=== PATIENT | male | born 1950 | race Caucasian/White ===

== ENCOUNTER 2023-01-06 07:48 | Outpatient (CLI) | payer MEDICARE, BC, SELFPAY ==
--- NOTE | 2023-01-06 08:15 | CRLHL7_ITS ---
For Patients: As a result of the Century Cures Act, medical imaging exams and procedure reports are released immediately into your electronic medical record. You may view this report before your referring provider. If you have questions, please contact your health care provider. INDICATION: Back pain with right-sided radiculopathy. TECHNIQUE: Multiplanar multisequence noncontrast MR images acquired through the lumbar spine. COMPARISON: None. FINDINGS: Mild rightward lumbar curvature. Lumbar lordosis is preserved. Vertebral heights maintained. No acute fracture or spondylolisthesis. No T1 hypointense marrow replacing lesions. Normal conus terminates at L1-2. Mild edema in the right L5 pedicle. T12-L1 and L1-2: No spinal canal or neural foraminal narrowing. L2-3: Mild facet arthropathy. No spinal canal or neural foraminal narrowing. L3-4: Moderate disc degeneration and mild disc height loss. Caudally migrated central disc extrusion measuring 5 mm in short axis. Mild facet arthropathy. Mild spinal canal and lateral recess narrowing. Mild bilateral neural foraminal narrowing. L4-5: Moderate disc degeneration. Mild disc height loss. Superiorly migrated left central disc extrusion extending 8 mm posterior to the endplate margin. Moderately advanced facet arthropathy. Thickening ligamentum flavum. Moderately severe spinal canal stenosis. Severe stenosis of the lateral recesses. Mild left and moderate right neural foraminal narrowing. L5-S1: Advanced disc degeneration and disc height loss. Minimal endplate edema. Posterior bulging and endplate spondylitic ridging. [id number] facet arthropathy. No spinal canal narrowing. Mild bilateral neural foraminal narrowing. Sacroiliac joint degenerative changes. T2 hyperintense lesion in the right kidney superior pole, most typical for a renal cyst. IMPRESSION: 1. At L4-5, superiorly migrated left central disc extrusion moderately severely narrows the spinal canal and severely narrows the lateral recesses. Moderate right and mild left neural foraminal narrowing. 2. At L3-4, caudally migrated central disc extrusion mildly narrows the spinal canal and lateral recesses. Mild neural foraminal narrowing. 3. Mild edema in the right L5 pedicle likely represents a stress response. Dictated by Abel Alvarez MD @ 01/06/2023 9:55:04 AM (Electronically Signed)
== END 2023-01-06 07:49 | disposition home or self-care (01) ==
LOC: MRI 07:48
PROVIDERS: PCP Family Medicine; Visit Provider Family Medicine
DX: M54.10 Radiculopathy, site unspecified (principal); M51.36 Other intervertebral disc degeneration, lumbar region
CPT/HCPCS: 72148

== ENCOUNTER 2024-02-18 09:27 | Outpatient (CLI) | payer MEDICARE, BC, SELFPAY ==
--- OUTSIDE RECORDS SUMMARY | 2024-02-18 09:29 | XMS_ITS | Encounter Summary ---
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 This section includes the names of all active insurance providers for the patient. Insurance Provider Type of Coverage Plan Name Start of Policy Coverage End of Policy Coverage Group Number Member ID Insurance Provider's Telephone Number Policy Jara's Name Patient's Relationship to Policy Jara [facility] (WNR) MEDICARE ADVANTAGE [facility] (WNR) Jul 21, 2018 [id number] [phone] JOSEJULIO CÉSAR PATIENT MEDICARE (WNR) MEDICARE (M) PART A Mar 21, 2017 PART A [id number] [facility] [phone] CHARLYJULIO CÉSAR VANDA PATIENT Selected Encounter This section includes the information on record at [place] for the Encounter. Date/Time Encounter Type Encounter Description Reason Provider Source Oct 02, 2023 08:00 AM OFFICE O/P EST MOD 30 MIN PRIMARY CARE/MEDICINE ICD-10-CM I10 Essential (primary) hypertension WILI VASQUEZ Jordy Encounter Template Text not used by [facility] Assessments - Encounter Diagnoses This section includes the primary and secondary diagnoses documented for the Encounter. Date/Time Primary/Secondary Diagnosis Diagnosis Name Provider Source Oct 03, 2023 05:58 AM PRIMARY Essential (primary) hypertension WILI VASQUEZ CB Oct 03, 2023 05:58 AM SECONDARY Allergic rhinitis, unspecified [facility]RISTINA,[facility]I [facility] Oct 03, 2023 05:58 AM SECONDARY Chronic ischemic heart disease, unspecified [facility]RISTINA,[facility]I [facility] Oct 03, 2023 05:58 AM SECONDARY Encounter for screening, unspecified [facility]RISTINA,[facility]I [facility] Oct 03, 2023 05:58 AM SECONDARY Personal history of colonic polyps CHRISTINA,[facility]I [facility] Oct 03, 2023 05:58 AM SECONDARY Pure hypercholesterolemia , unspecified [facility]RISTINA,[facility]I [facility] Oct 03, 2023 05:58 AM SECONDARY Type 2 diabetes mellitus without complications CHRISTINA,WILI ALEMAN [facility] Vital Signs: All taken on the encounter date This section contains inpatient and outpatient Vital Signs collected on the date of the Encounter. Date/Time Temperature Pulse Blood Pressure Respiratory Rate SP02 Pain Height Weight Body Mass Index Source Oct 02, 2023 08:16 AM 155/74 [facility] Oct 02, 2023 08:03 AM 97.1 57 166/82 16 96 0 74 225.2 29 [facility] Social History: Smoking Status (Most current) and Tobacco Use (All prior to encounter date) This section includes the most current, and the historical, smoking and tobacco- related health factors from the [place] facility where the Encounter took place. Current Smoking Status This section includes the most current smoking, or tobacco-related health factor, from the [place] facility where the Encounter took place. Date/Time Current Smoking Status Comment Facil ity Oct 02, 2022 08:30 AM VA-TOBACCO FORMER USER [facility] Tobacco Use History This section includes a history of the smoking, or tobacco-related health factors, that were collected on or before the date of the Encounter. The data comes from the [place] facility where the Encounter took place. Date/Time Smoking Status/Tobacco Use Comment F acility Oct 02, 2022 08:30 AM VA-TOBACCO QUIT 15 YRS OR MORE [facility] Aug 30, 2021 08:00 AM VA-TOBACCO FORMER USER [facility] Aug 30, 2021 08:00 AM VA-TOBACCO QUIT 15 YRS OR MORE [facility] Jun 13, 2020 09:00 AM VA-TOBACCO FORMER USER [facility] Jun 13, 2020 09:00 AM VA-TOBACCO QUIT 15 YRS OR MORE [facility] Jun 03, 2019 04:26 PM VA-TOBACCO FORMER USER [facility] Jun 03, 2019 04:26 PM VA-TOBACCO QUIT 15 YRS OR MORE [facility] May 19, 2018 09:56 AM VA-TOBACCO FORMER USER [facility] May 19, 2018 09:56 AM VA-TOBACCO QUIT 15 YRS OR MORE [facility] Advance Directives: All historical and current Section Date Range: From patient's date of to the date document was created. This section includes ALL of a patient's completed or amended [place] Advance and Rescinded Directives. The entries below indicate that a directive exists for the patient, but an actual copy is not included with this document. The data comes from all [place] facilities. Date Advance Directives Provider Source Jun 17, 2023 ADVANCE DIRECTIVE [place] SAINI [facility] Jun 17, 2023 ADVANCE DIRECTIVE DISCUSSION FREIDA SAINI [facility] Encounter Notes: All associated encounter notes This section contains the clinical notes associated to the Encounter. Date/Time Encounter Note(s) Provider Source Oct 02, 2023 08:11 AM PRIMARY CARE AYESHA GARCIA NOTE: LOCAL TITLE: [facility] NURSING PROGRESS NOTE STANDARD TITLE: PRIMARY CARE NURSING NOTE DATE OF NOTE: OCT 02, 2023@08:11 ENTRY DATE: OCT 02, 2023@08:11:38 AUTHOR: DELIA BRINK COSIGNER: URGENCY: STATUS: COMPLETED TYPE OF VISIT: Appointment Check In Type of appointment: In-person appointment REASON FOR VISIT: Annual ALLERGIES: Patient has answered NKA VITAL SIGNS: Blood Pressure: 166/82 (10/02/2023 08:03) Pulse: 57 (10/02/2023 08:03) Respiration: 16 (10/02/2023 08:03) Temperature: 97.1 F [36.2 C] (10/02/2023 08:03) Weight: 225.2 lb [102.15 kg] (10/02/2023 08:03) Height: 74 in [188.0 cm] (10/02/2023 08:03) BMI: 29.0 O2 Sat: 96% (10/02/2023 08:03) Pain: 0 (10/02/2023 08:03) PAIN SCREEN: Patient is not having significant pain that they wish to discuss with their provider today. MEDICATION Active Outpatient Medications (including Supplies): MONTELUKAST NA 10MG TAB TAKE ONE TABLET BY MOUTH EVERY DAY ACTIVE FOR NASAL CONGESTION Non-VA ACETAMINOPHEN 500MG TAB 1000MG MOUTH EVERY 6 HOURS ACTIVE NEEDED Non-VA ASPIRIN 81MG EC TAB 81MG MOUTH EVERY MORNING ACTIVE Non-VA CLOPIDOGREL BISULFATE 75MG TAB 75MG MOUTH ACTIVE Non-VA HYDROCHLOROTHIAZIDE TAB 12.5MG MOUTH EVERY DAY ACTIVE Non-VA METFORMIN HCL 750MG 24HR SA TAB 750MG MOUTH EVERY ACTIVE DAY Non-VA METOPROLOL SUCCINATE 50MG SA TAB 50MG MOUTH TWICE A ACTIVE DAY Non-VA ROSUVASTATIN CA 5MG TAB 40MG MOUTH EVERY DAY ACTIVE Non-VA VALSARTAN 160MG TAB 80MG MOUTH EVERY DAY ACTIVE PAVE Foot Check: A complete foot check was completed at this encounter. VISUAL INSPECTION: Includes inspection for skin breaks, deformity, erythema, trauma, pallor on elevation, dependent rubor, nail deformities, extensive callus and pitting edema. Visual exam results: Abnormal Observations: Hammertoes, Other:Reddness on medial 1st toe joint bilaterally. PEDAL PULSES: Includes palpation of dorsalis and posterior tibial pulses and signs/symptoms of vascular compromise like pain, pallor, parasthesia or paralysis. Present (even if diminished) SENSORY CHECK: Includes 10 gram Monofilament ([place]) test of sensation. Intact (Greater than or equal to 80% of sites checked) Abnormal (Less than 80% of sites checked): Intact LOW-RISK LOW RISK FOOT EDUCATION: 1. Advised patient not to walk barefoot. Instructed the patient to pay close attention to the style and fit of shoes. 2. Explained the importance of daily foot checks. Explained that loss of sensation leads to callouses. Callouses break down, which result in ulcers that may lead to gangrene and amputation. 3. Stressed the importance of daily foot hygiene. Warm (not hot) bathing of the feet, complete drying and thorough inspection for changes in the condition of the skin constitute daily foot care. Demonstrated how to do a thorough foot check. 4. Emphasized the use of clean, non-restrictive socks/stockings and well fitting shoes. 5. Stressed the importance of immediate follow-up of any foot injuries or ulcers. Explained that he/she should be non-weight bearing whenever there are lesions on the foot, to prevent cellular damage. Level of Understanding: Good COVID-19 Immunization: Refused Pfizer Monovalent COVID-19 vaccine Immunization: COVID-19 (PFIZER), MRNA, LNP-S, PF, ROSA-SUCROSE, 30 MCG/0.3 ML (AGES 12+ YEARS) Refusal Reason: PATIENT DECISION Patient refuses all immunization(s) in the COVID-19 group Date Documented: 10/02/23 08:14 Influenza Immunization: The patient has received the seasonal influenza vaccine for the current season at another location. Documented: INFLUENZA, UNSPECIFIED FORMULATION Historical Date Administered: Apr 20, 2023 Outside Location: [facility] Information Source: FROM OTHER PROVIDER /gustavo/ [facility] Signed: 10/02/2023 08:15 [facility] Oct 02, 2023 08:07 AM PRIMARY CARE NOTE: LOCAL TITLE: [facility] PROGRESS NOTE - [facility] STANDARD TITLE: PRIMARY CARE NOTE DATE OF NOTE: OCT 02, 2023@08:07 ENTRY DATE: OCT 02, 2023@08:07:48 AUTHOR: WILI VASQUEZ EXP COSIGNER: URGENCY: STATUS: COMPLETED Assessment and Plan: #. Hypertension. Blood pressure is slightly elevated today. He states it is always normal at home, under 140/90, but when he goes into a clinic it is elevated. He is managed by his non-VA PCP. #. Coronary artery disease. Stable. No anginal symptoms. History of CABG and stents. The patient states he no longer takes clopidogrel due to drug interaction with rosuvastatin, which is working well on his cholesterol. He takes aspirin 162 mg daily. He is also managed on metoprolol succinate 50 mg twice daily. #. Hyperlipidemia. Managed by non-VA provider on rosuvastatin 40 mg daily. #. Type 2 diabetes mellitus. No complications. He gets his [facility] exams [facility] from the [facility]. Encouraged him to have records [facility] to the [facility]. PAVE exam done today (low risk), see nursing note. He is on a statin and an ARB. #. History of colon polyps. Declines GI consult for colonoscopy as his non-VA provider orders his colonoscopy for him. He will discuss with Dr. Díaz. #. Allergic rhinitis. Symptoms helped with montelukast 10 mg daily which was renewed for him today. #. Annual healthcare maintenance. Screenings/reminders done per nurse note and per below. Return to clinic: 1 year for annual healthcare maintenance visit, and sooner as clinically needed Time documentation: 30 minutes total patient care time on the day of service, which included nursing and physician [id number] time with the patient (history/exam/discussion and counseling about concerns/reminders, medication reconciliation), reviewing records, ordering studies, coordinating care and documenting in the medical record. (x ) Patient/Caregiver indicates readiness to learn, verbalizes understanding, agreement and satisfaction with the treatment plan. Patient/Caregiver doesn't have any further questions today. Nurse's notes reviewed from today. AIRAM PARKS is a 73 year old MALE here for annual healthcare maintenance visit and to follow-up on chronic conditions as noted above Co-managed care: John Shepherd, Dr. Bryant Díaz. Dr. Garay is his [facility] project facilitator HPI: Patient states his diabetes control is okay. He generally runs in the 150- 160 range. He had one lower number of 85, which he felt symptomatic with. He has had a rare reading in the 300s. He is uncertain what his last A1c was but thinks it was in the 7's. He watches his carbohydrate intake and does not eat any candy. Regarding blood pressures, they are always normal at home, but high when he goes into the clinic. He denies any lightheadedness, chest pain, shortness of breath or leg swelling. Hearing loss is stable. His hearing aids work well for him. He goes to the gym every day and does both cardio and weights. No specific health concerns today. ROS: 10 system review otherwise negative Family History: grandpa had diabetes; dad had heart problems-- age 65, mom had a stroke (still alive) Social History: quit smoking 35 years ago--25-30 pk-yrs; occas. alcohol-- 1-2 drinks--varies (every other day to every other week); Active problems - Computerized Problem List is the source for the followin. Chronic low back pain 2. Essential hypertension 3. Vitamin D deficiency 4. Chronic ischemic heart disease - stent early 1999 5. Hypercholesterolemia 6. Hemorrhoids 7. Neoplasm of abdomen 8. Diabetes Mellitus Type 2 ([facility] [id number]) 9. Elevated PSA ([facility] [id number]) 10. Microalbuminuria due to type 2 diabetes mellitus 11. History of coronary artery bypass grafting - CABG x 4 12. History of polyp of colon 13. Allergic rhinitis Allergies: Patient has answered NKA EXAM: VS: Temp: 97.1 F [36.2 C] (10/02/2023 08:03) BP: 166/82 (10/02/2023 08:03); repeat 155/74 Pulse:57 (10/02/2023 08:03) Resp: 16 (10/02/2023 08:03) Pain: 0 (10/02/2023 08:03) Weight: WEIGHTS IN LAST 6 MONTHS: 225.2 (OCT 02, 2023@08:03:19) BMI: 29.0 Pulse Ox: 96% (10/02/2023 08:03) Gen: well-nourished, well-groomed, no acute distress HEENT: Normocephalic, Normal conjunctiva/sclera, no nasal drainage Respiratory: Normal respiratory effort, clear to auscultation bilaterally Cardiac: RRR, S1 and S2 normal, no murmur; no cyanosis; no lower extremity edema Skin: Warm, dry, no rashes on exposed skin Neuro: Alert and oriented ? 3 , normal gait Psych: Normal affect, normal thought processing and speech production Follow Up Colonoscopy: Colonoscopy is due based on information available to this reminder. Patient has arranged or is choosing to arrange a Colonoscopy independent of and w/out assistance from this [place]. gets this outside [place]--he will discuss with Dr. Díaz Assess Statin Use - Lipids (CVD/DM): The patient is on the highest dose of statin that they can tolerate. Medication Reconciliation: Education Evaluations *Was medication education provided for NEW medications or CHANGES to medications? (including medication name, dose, route, reason for use, and potential side effects). No new medications or medication changes during this encounter. Additional information: But updated non-VA list TERATOGENIC MED & CONTRACEPTION REVIEW (Optional)... MEDICATION RECONCILIATION List declined. Review Done: The medication list shown below was verified for accuracy and it includes all pending medications/active medications/all medications or discontinued within the last 90 days/all remote medications and non-VA medications. If a given category (i.e. remote meds) is not shown, that means that a patient doesn't have a medication(s) in that category. Allergies listed below were also reviewed/updated for accuracy. Allergies/ADR from [facility] may not display in CPRS. Use JLV MRT5 - Allergies/ADRs FACILITY ALLERGY/ADR -------- No Remote Allergy/ADR Data available for this patient [facility] No Known Allergies Active and Recently Outpatient Medications (including Supplies): Issue Date Status Last Fill Active Outpatient Medications Refills Expiration 1) MONTELUKAST NA 10MG TAB Qty: 90 for 90 ACTIVE Issu:10-02-22 days Sig: TAKE ONE TABLET BY MOUTH Refills: 0 Last:08-04-23 EVERY DAY FOR NASAL CONGESTION Expr:10-03-23 Issue Date Status Last Fill Pending Outpatient Medications Refills Expiration 1) MONTELUKAST NA 10MG TAB Qty: 90 Sig: PENDING TAKE ONE TABLET BY MOUTH EVERY DAY FOR Refills: 0 NASAL CONGESTION Start Date Active Non-VA Medications Refills Expiration 1) Non-VA ACETAMINOPHEN 500MG TAB Sig: ACTIVE 1000MG MOUTH EVERY 6 HOURS NEEDED 2) Non-VA ASPIRIN 81MG EC TAB SiMG ACTIVE MOUTH EVERY MORNING 3) Non-VA HYDROCHLOROTHIAZIDE TAB Sig: ACTIVE 12.5MG MOUTH EVERY DAY 4) Non-VA METFORMIN HCL 750MG 24HR SA TAB ACTIVE SiMG MOUTH EVERY DAY 5) Non-VA METOPROLOL SUCCINATE 50MG SA TAB ACTIVE SiMG MOUTH TWICE A DAY 6) Non-VA PIOGLITAZONE HCL 30MG TAB Sig: ACTIVE 30MG MOUTH EVERY DAY 7) Non-VA ROSUVASTATIN CA 5MG TAB Sig: ACTIVE 40MG MOUTH EVERY DAY 8) Non-VA VALSARTAN 160MG TAB SiMG ACTIVE MOUTH EVERY DAY Start Date Inactive Non-VA Medications Refills Expiration 1) Non-VA CLOPIDOGREL BISULFATE 75MG TAB DISCONTINUED SiMG MOUTH 11 Total Medications HTN Assess for Elevated BP>=140/90: The patient's blood pressure is usually adequately controlled. No medication changes are indicated at this time. Comment: Home blood pressures are always normal. Medications are managed by his non-VA provider. /gustavo/ WILI VASQUEZ M.D. Physician, Taye BARNETT Signed: 10/03/2023 05:58 WILI VASQUEZ
--- OUTSIDE RECORDS SUMMARY | 2024-02-18 09:29 | XMS_ITS | Continuity of Care Document ---
Author Name [facility] Organization [facility] Care Team Providers Care Enforcement Manager Name Role Phone [facility] Unavailable Unavailable Problems Combined list of problems from Department of Defense and Veterans Affairs facilities. It does not include entries that were removed or entered in error. Problem Status Onset Date Problem Type Date of Resolution Comments Source Allergic rhinitis Active Condition [facility] Chronic ischemic heart disease Active Condition May 27, 2018 Entered By: JAMA NORWOOD Comment: stent early 1999 [facility] Chronic low back pain Active Condition [facility] Diabetes Mellitus Type 2 (SCT 79819908) Active Condition [facility] Elevated PSA (SCT 004785828) Active Condition [facility] Essential hypertension Active Condition [facility] Hemorrhoids Active Condition [facility] History of coronary artery bypass grafting Active Condition Aug 212021 Entered By: BIBI AYALA Comment: CABG x 4 [facility] History of polyp of colon Active Condition [facility] Hypercholesterolemia Active Condition [facility] Microalbuminuria due to type 2 diabetes mellitus Active Condition [facility] Neoplasm of abdomen Active Condition [facility] Vitamin D deficiency Active Condition [facility] Diagnosis: ICD-10-CM I10 Essential (primary) hypertension Active Diagnosis [facility] Medications Combined list of outpatient medications from Department of Defense and Veterans Affairs facilities.Medications provided include 1) outpatient medications from the last 15 months, and 2) patient-reported medications. Medication Details Route Status Patient Instructions Prescription Expires Prescription Number Last Dispense Date Ordering Provider Order Date Order Qty Source ACETAMINOPH EN 500MG TAB ACETAMIN OPHEN 500MG TAB Non-VA TAKE TWO TABLETS BY MOUTH Q6H PRN May 28, 2018 Non-VA Document ed by: NICKY NORWOOD Document ed at: [facility] ORAL ACTIVE Rickey NORWOOD 2017 [facility] ASPIRIN 81MG TAB,EC ASPIRIN 81MG TAB,EC Non-VA TAKE TWO TABLETS BY MOUTH EVERY MORNING Oct 02, 2023 Non-VA Document ed by: WILI VASQUEZ Document ed at: [facility]IVE Sharifa VASQUEZ NNE 2023 [facility] HYDROCHLORO THIAZIDE TAB HYDROCHL OROTHIAZ AMARILIS TAB Non-VA TAKE 12.5MG BY MOUTH EVERY DAY FOR BLOOD PRESSURE Oct 02, 2022 Non-VA Document ed by: WILI VASQUEZ Document ed at: [facility] Sharifa VASQUEZ NNE 2022 [facility] METFORMIN HCL 750MG 24HR TAB,SA METFORMI N HCL 750MG 24HR TAB,SA Non-VA TAKE ONE TABLET BY MOUTH EVERY DAY Aug 30, 2021 Non-VA Document ed by: KHALIDA AYALA Document ed at: [facility] ORAL ACTIVE LA AYALA 2021 [facility] METOPROLOL SUCCINATE 50MG TAB,SA METOPROL OL SUCCINAT E 50MG TAB,SA Non-VA TAKE ONE TABLET BY MOUTH TWICE A DAY FOR HEART PROTECTI ON Oct 02, 2022 Non-VA Document ed by: WILI VASQUEZ Document ed at: [facility] ORAL ACTIVE Sharifa VASQUEZ NNE 2022 [facility] MONTELUKAST NA 10MG TAB M[place] AST NA 10MG TAB Active TAKE ONE TABLET BY MOUTH EVERY DAY FOR NASAL CONGESTI ON Oct 02, 2023 90 Oct 02, 2024 [id number] D Feb 09, 2024 [facility] 10/02/2024 [id number] Sharifa VASQUEZ NNE 2023 90 [facility] MONTELUKAST NA 10MG TAB [place] AST NA 10MG TAB Disconti nued TAKE ONE TABLET BY MOUTH EVERY DAY FOR NASAL CONGESTI ON Oct 02, 2022 90 Oct 03, 2023 [id number] C Aug 04, 2023 [facility] ORAL DISCONT INUED 10/03/2023 [id number] Sharifa VASQUEZ NNE 2022 90 [facility] PIOGLITAZON E HCL 30MG TAB PIOGLITA ZONE HCL 30MG TAB Non-VA TAKE ONE TABLET BY MOUTH EVERY DAY FOR DIABETES Oct 02, 2023 Non-VA Document ed by: WILI VASQUEZ Document ed at: [facility] ORAL ACTIVE CHRISTINA,A NNE 2023 [facility] ROSUVASTATI N CA 5MG TAB ROSUVAST ATIN CA 5MG TAB Non-VA TAKE 8 TABLETS BY MOUTH EVERY DAY FOR CHOLESTE ROL Oct 02, 2022 Non-VA Document ed by: WILI VASQUEZ Document ed at: [facility] ORAL ACTIVE CHRISTINA,Sharifa NNE 2022 [facility] VALSARTAN 160MG TAB VALSARTA N 160MG TAB Non-VA TAKE ONE-HALF TABLET BY MOUTH EVERY DAY Aug 30, 2021 Non-VA Document ed by: KHALIDA AYALA Document ed at: [facility] ORAL ACTIVE LA AYALA 2021 [facility] Immunizations Combined list of available immunizations from the Department of Defense and Veterans Affairs facilities. Immunization Series Date Given Administered By Site Reaction Lot Number CVX Code Drug Medical Examiner Status Comments Source INFLUENZA, UNSPECIFIED FORMULATION 2022 88 complet ed [facility] PNEUMOCOCCAL CONJUGATE PCV20, POLYSACCHARID E [id number] CONJUGATE, ADJUVANT, PF 2022 [facility] BRINK LEFT DELTO ID [id number] 216 complet ed [facility] COVID-19 (MODERNA), MRNA, LNP-S, BIVALENT BOOSTER, PF, 50 MCG/0.5 ML OR 25MCG/0.25 ML DOSE 1 2021 229 complet ed [facility] INFLUENZA, UNSPECIFIED FORMULATION 2021 88 complet ed [facility] INFLUENZA, UNSPECIFIED FORMULATION 2020 88 complet ed [facility] COVID-19 (MODERNA), MRNA, LNP-S, PF, 100 MCG/0.5ML DOSE OR 50 MCG/0.25ML DOSE 3 2020 207 complet ed [facility] COVID-19 (MODERNA), MRNA, LNP-S, PF, 100 MCG/0.5 ML DOSE 2 2020 207 complet ed MOD: [id number]; 1 [facility] COVID-19 (MODERNA), MRNA, LNP-S, PF, 100 MCG/0.5 ML DOSE 1 2020 207 complet ed MOD; [id number]; 1 [facility] COVID-19 (MODERNA), MRNA, LNP-S, PF, 100 MCG/0.5ML DOSE OR 50 MCG/0.25ML DOSE 3 2020 207 complet ed [facility] INFLUENZA, SEASONAL, INJECTABLE 2018 141 complet ed [facility] ZOSTER RECOMBINANT 2 2018 187 complet ed [facility] ZOSTER RECOMBINANT 1 2018 187 complet ed [facility] INFLUENZA, SEASONAL, INJECTABLE 2017 141 complet ed [facility] INFLUENZA, SEASONAL, INJECTABLE 2016 141 complet ed [facility] PNEUMOCOCCAL POLYSACCHARID E PPV23 2016 33 complet ed [facility] PNEUMOCOCCAL CONJUGATE PCV 13 2016 133 complet ed [facility] TDAP 2013 115 complet ed [facility] PNEUMOCOCCAL POLYSACCHARID E PPV23 2009 33 complet ed [facility] TD(ADULT) UNSPECIFIED FORMULATION 1996 139 complet ed [facility] Results Combined list of recent chemistry, hematology and other laboratory results from Department of Defense and Veterans Affairs, ranging from 15 months to all on record, depending upon the facility. Order Name Results Value Reference Range Date Interpretation Specimen Comments Source MICROALBUM IN/CREATIN INE RATIO URINE CREATININE [MASS/VOLUM E] IN URINE 114.0 mg/dL 58.0 - 161.0 10/02 Specimen Type: URINE No comment entered. Ordering Provider: WILI VASQUEZ Report Released Date/Time: Oct 02, 2022 09:00 AM Reporting Lab: [facility] [address] Performing Lab: [facility] [address] [facility] MICROALBUM IN/CREATIN INE RATIO URINE MICROALBUMI N/CREATININ E [MASS RATIO] IN URINE 95.6 mg/g{c reat} <29.9 - 29.9 10/02 H Specimen Type: URINE No comment entered. Ordering Provider: WILI VASQUEZ Report Released Date/Time: Oct 02, 2022 09:00 AM Reporting Lab: [facility] [address] Performing Lab: [facility] [address] [facility] MICROALBUM IN/CREATIN INE RATIO URINE MICROALBUMI N [MASS/VOLUM E] IN URINE 109.0 mg/L <29.9 - 29.9 10/02 H Specimen Type: URINE No comment entered. Ordering Provider: WILI VASQUEZ Report Released Date/Time: Oct 02, 2022 09:00 AM Reporting Lab: [facility] [address] Performing Lab: [facility] [address] [facility] COMPREHENS SUZANNE METABOLIC PANEL+MG CREATININE [MASS/VOLUM E] IN SERUM OR PLASMA 0.8 mg/dL 0.7 - 1.2 10/02 Specimen Type: PLASMA No comment entered. Ordering Provider: WILI VASQUEZ Report Released Date/Time: Oct 02, 2022 09:00 AM Reporting Lab: [facility] [address] Performing Lab: [facility] [address] [facility] COMPREHENS SUZANNE METABOLIC PANEL+MG UREA NITROGEN [MASS/VOLUM E] IN SERUM OR PLASMA 18 mg/dL 8 - 26 10/02 Specimen Type: PLASMA No comment entered. Ordering Provider: WILI VASQUEZ Report Released Date/Time: Oct 02, 2022 09:00 AM Reporting Lab: [facility] [address] Performing Lab: [facility] [address] [facility] COMPREHENS SUZANNE METABOLIC PANEL+MG GLUCOSE [MASS/VOLUM E] IN SERUM OR PLASMA 223 mg/dL 70 - 100 10/02 H Specimen Type: PLASMA No comment entered. Ordering Provider: WILI VASQUEZ Report Released Date/Time: Oct 02, 2022 09:00 AM Reporting Lab: [facility] [address] Performing Lab: [facility] [address] [facility] COMPREHENS SUZANNE METABOLIC PANEL+MG SODIUM [MOLES/VOLU ME] IN SERUM OR PLASMA 136 mmol/L 136 - 145 10/02 Specimen Type: PLASMA No comment entered. Ordering Provider: WILI VASQUEZ Report Released Date/Time: Oct 02, 2022 09:00 AM Reporting Lab: [facility] [address] Performing Lab: [facility] [address] [facility] COMPREHENS SUZANNE METABOLIC PANEL+MG POTASSIUM [MOLES/VOLU ME] IN SERUM OR PLASMA 4.3 mmol/L 3.5 - 5.1 10/02 Specimen Type: PLASMA No comment entered. Ordering Provider: WILI VASQUEZ Report Released Date/Time: Oct 02, 2022 09:00 AM Reporting Lab: [facility] [address] Performing Lab: [facility] [address] [facility] COMPREHENS SUZANNE METABOLIC PANEL+MG CHLORIDE [MOLES/VOLU ME] IN SERUM OR PLASMA 102 mmol/L 98 - 107 10/02 Specimen Type: PLASMA No comment entered. Ordering Provider: WILI VASQUEZ Report Released Date/Time: Oct 02, 2022 09:00 AM Reporting Lab: [facility] [address] Performing Lab: [facility] [address] [facility] COMPREHENS SUZANNE METABOLIC PANEL+MG CARBON DIOXIDE, TOTAL [MOLES/VOLU ME] IN SERUM OR PLASMA 28 mmol/L 22 - 29 10/02 Specimen Type: PLASMA No comment entered. Ordering Provider: WILI VASQUEZ Report Released Date/Time: Oct 02, 2022 09:00 AM Reporting Lab: [facility] [address] Performing Lab: [facility] [address] [facility] COMPREHENS SUZANNE METABOLIC PANEL+MG CALCIUM [MASS/VOLUM E] IN SERUM OR PLASMA 8.9 mg/dL 8.4 - 10.2 10/02 Specimen Type: PLASMA No comment entered. Ordering Provider: WILI VASQUEZ Report Released Date/Time: Oct 02, 2022 09:00 AM Reporting Lab: [facility] [address] Performing Lab: [facility] [address] [facility] COMPREHENS SUZANNE METABOLIC PANEL+MG PROTEIN [MASS/VOLUM E] IN SERUM OR PLASMA 6.7 g/dL 6.0 - 8.3 10/02 Specimen Type: PLASMA No comment entered. Ordering Provider: WILI VASQUEZ Report Released Date/Time: Oct 02, 2022 09:00 AM Reporting Lab: [facility] [address] Performing Lab: [facility] [address] [facility] COMPREHENS SUZANNE METABOLIC PANEL+MG ALBUMIN [MASS/VOLUM E] IN SERUM OR PLASMA 4.2 g/dL 3.5 - 5.2 10/02 Specimen Type: PLASMA No comment entered. Ordering Provider: WILI VASQUEZ Report Released Date/Time: Oct 02, 2022 09:00 AM Reporting Lab: [facility] [address] Performing Lab: [facility] [address] [facility] COMPREHENS SUZANNE METABOLIC PANEL+MG BILIRUBIN.T OTAL [MASS/VOLUM E] IN SERUM OR PLASMA 0.8 mg/dL 0.2 - 1.2 10/02 Specimen Type: PLASMA No comment entered. Ordering Provider: WILI VASQUEZ Report Released Date/Time: Oct 02, 2022 09:00 AM Reporting Lab: [facility] [address] Performing Lab: [facility] [address] [facility] COMPREHENS SUZANNE METABOLIC PANEL+MG MAGNESIUM [MASS/VOLUM E] IN SERUM OR PLASMA 2.2 mg/dL 1.6 - 2.6 10/02 Specimen Type: PLASMA No comment entered. Ordering Provider: WILI VASQUEZ Report Released Date/Time: Oct 02, 2022 09:00 AM Reporting Lab: [facility] [address] Performing Lab: [facility] [address] [facility] COMPREHENS SUZANNE METABOLIC PANEL+MG ANION GAP IN SERUM OR PLASMA 6 mmol/L 5 - 15 10/02 Specimen Type: PLASMA No comment entered. Ordering Provider: WILI VASQUEZ Report Released Date/Time: Oct 02, 2022 09:00 AM Reporting Lab: [facility] [address] Performing Lab: [facility] [address] [facility] COMPREHENS SUZANNE METABOLIC PANEL+MG ALKALINE PHOSPHATASE [ENZYMATIC ACTIVITY/VO LUME] IN SERUM OR PLASMA 95 U/L 40 - 150 10/02 Specimen Type: PLASMA No comment entered. Ordering Provider: WILI VASQUEZ Report Released Date/Time: Oct 02, 2022 09:00 AM Reporting Lab: [facility] [address] Performing Lab: [facility] [address] [facility] COMPREHENS SUZANNE METABOLIC PANEL+MG ALANINE AMINOTRANSF ERASE [ENZYMATIC ACTIVITY/VO LUME] IN SERUM OR PLASMA 39 U/L <55 - 55 10/02 Specimen Type: PLASMA No comment entered. Ordering Provider: WILI VASQUEZ Report Released Date/Time: Oct 02, 2022 09:00 AM Reporting Lab: [facility] [address] Performing Lab: [facility] [address] [facility] COMPREHENS SUZANNE METABOLIC PANEL+MG ASPARTATE AMINOTRANSF ERASE [ENZYMATIC ACTIVITY/VO LUME] IN SERUM OR PLASMA 30 U/L <34 - 34 10/02 Specimen Type: PLASMA No comment entered. Ordering Provider: WILI VASQUEZ Report Released Date/Time: Oct 02, 2022 09:00 AM Reporting Lab: [facility] [address] Performing Lab: [facility] [address] [facility] COMPREHENS SUZANNE METABOLIC PANEL+MG GLOMERULAR FILTRATION RATE/1.73 SQ M.PREDICTED [VOLUME RATE/AREA] IN SERUM, PLASMA OR BLOOD BY CREATININE- BASED FORMULA (CKD-EPI) >90 60 10/02 Specimen Type: PLASMA No comment entered. Ordering Provider: WILI VASQUEZ Report Released Date/Time: Oct 02, 2022 09:00 AM Reporting Lab: [facility] [address] Performing Lab: [facility] [address] [facility] CBC LEUKOCYTES [#/VOLUME] IN BLOOD BY AUTOMATED COUNT 7.15 10*3/u L 4.0 - 11.0 10/02 Specimen Type: BLOOD No comment entered. Ordering Provider: WILI VASQUEZ Report Released Date/Time: Oct 02, 2022 09:00 AM Reporting Lab: [facility] [address] Performing Lab: [facility] [address] [facility] CBC ERYTHROCYTE S [#/VOLUME] IN BLOOD BY AUTOMATED COUNT 5.35 10*6/u L 4.6 - 6.2 10/02 Specimen Type: BLOOD No comment entered. Ordering Provider: WILI VASQUEZ Report Released Date/Time: Oct 02, 2022 09:00 AM Reporting Lab: [facility] [address] Performing Lab: [facility] [address] [facility] CBC HEMOGLOBIN [MASS/VOLUM E] IN BLOOD 15.5 g/dL 13.5 - 17.9 10/02 Specimen Type: BLOOD No comment entered. Ordering Provider: WILI VASQUEZ Report Released Date/Time: Oct 02, 2022 09:00 AM Reporting Lab: [facility] [address] Performing Lab: [facility] [address] [facility] CBC HEMATOCRIT [VOLUME FRACTION] OF BLOOD BY AUTOMATED COUNT 46.1 41 - 54 10/02 Specimen Type: BLOOD No comment entered. Ordering Provider: WILI VASQUEZ Report Released Date/Time: Oct 02, 2022 09:00 AM Reporting Lab: [facility] [address] Performing Lab: [facility] [address] [facility] CBC MCV [ENTITIC VOLUME] BY AUTOMATED COUNT 86.2 fL 80 - 100 10/02 Specimen Type: BLOOD No comment entered. Ordering Provider: WILI VASQUEZ Report Released Date/Time: Oct 02, 2022 09:00 AM Reporting Lab: [facility] [address] Performing Lab: [facility] [address] [facility] CBC MCH [ENTITIC MASS] BY AUTOMATED COUNT 29.0 pg 27 - 33 10/02 Specimen Type: BLOOD No comment entered. Ordering Provider: WILI VASQUEZ Report Released Date/Time: Oct 02, 2022 09:00 AM Reporting Lab: [facility] [address] Performing Lab: [facility] [address] [facility] CBC MCHC [MASS/VOLUM E] BY AUTOMATED COUNT 33.6 g/dL 32.0 - 37.5 10/02 Specimen Type: BLOOD No comment entered. Ordering Provider: WILI VASQUEZ Report Released Date/Time: Oct 02, 2022 09:00 AM Reporting Lab: [facility] [address] Performing Lab: [facility] [address] [facility] CBC PLATELETS [#/VOLUME] IN BLOOD BY AUTOMATED COUNT 208 10*3/u L 150 - 400 10/02 Specimen Type: BLOOD No comment entered. Ordering Provider: WILI VASQUEZ Report Released Date/Time: Oct 02, 2022 09:00 AM Reporting Lab: [facility] [address] Performing Lab: [facility] [address] [facility] CBC PLATELET MEAN VOLUME [ENTITIC VOLUME] IN BLOOD BY AUTOMATED COUNT 10.5 fL 7.4 - 10.4 10/02 H Specimen Type: BLOOD No comment entered. Ordering Provider: WILI VASQUEZ Report Released Date/Time: Oct 02, 2022 09:00 AM Reporting Lab: [facility] [address] Performing Lab: [facility] [address] [facility] CBC ERYTHROCYTE DISTRIBUTIO N WIDTH [RATIO] BY AUTOMATED COUNT 13.0 11.5 - 14.5 10/02 Specimen Type: BLOOD No comment entered. Ordering Provider: WILI VASQUEZ Report Released Date/Time: Oct 02, 2022 09:00 AM Reporting Lab: [facility] [address] Performing Lab: [facility] [address] [facility] HEMOGLOBIN A1C HEMOGLOBIN A1C/HEMOGLO BIN.TOTAL IN BLOOD 9.3 4.0 - 6.0 10/02 H Specimen Type: BLOOD Comment: Values obtained from A1C measurements can vary. For typical A1C assays, a reported value of 7.0 could actually be between 6.7 and 7.3 if measured by a reference method. A reported value of 9.0 could actually be between 8.7 and 9.3. Ref: [email or web address] gsp.org/CAPd devin.asp Ordering Provider: WILI VASQUEZ Report Released Date/Time: Oct 02, 2022 09:00 AM Reporting Lab: [facility] [address] Performing Lab: [facility] [address] [facility] LIPID PANEL,NON- FASTING CHOLESTEROL [MASS/VOLUM E] IN SERUM OR PLASMA 132 mg/dL <199 - 199 10/02 Specimen Type: PLASMA No comment entered. Ordering Provider: WILI VASQUEZ Report Released Date/Time: Oct 02, 2022 09:00 AM Reporting Lab: [facility] [address] Performing Lab: [facility] [address] [facility] LIPID PANEL,NON- FASTING CHOLESTEROL IN HDL [MASS/VOLUM E] IN SERUM OR PLASMA 42 mg/dL 40 10/02 Specimen Type: PLASMA No comment entered. Ordering Provider: WILI VASQUEZ Report Released Date/Time: Oct 02, 2022 09:00 AM Reporting Lab: [facility] [address] Performing Lab: [facility] [address] [facility] LIPID PANEL,NON- FASTING CHOLESTEROL IN LDL [MASS/VOLUM E] IN SERUM OR PLASMA BY CALCULATION 63 mg/dL <99 - 99 10/02 Specimen Type: PLASMA No comment entered. Ordering Provider: WILI VASQUEZ Report Released Date/Time: Oct 02, 2022 09:00 AM Reporting Lab: [facility] [address] Performing Lab: [facility] [address] [facility] LIPID PANEL,NON- FASTING CHOLESTEROL IN VLDL [MASS/VOLUM E] IN SERUM OR PLASMA BY CALCULATION 27 mg/dL <29 - 29 10/02 Specimen Type: PLASMA No comment entered. Ordering Provider: WILI VASQUEZ Report Released Date/Time: Oct 02, 2022 09:00 AM Reporting Lab: [facility] [address] Performing Lab: [facility] [address] [facility] LIPID PANEL,NON- FASTING CHOLESTEROL NON HDL [MASS/VOLUM E] IN SERUM OR PLASMA 90 mg/dL <129 - 129 10/02 Specimen Type: PLASMA No comment entered. Ordering Provider: WILI VASQUEZ Report Released Date/Time: Oct 02, 2022 09:00 AM Reporting Lab: [facility] [address] Performing Lab: [facility] [address] [facility] LIPID PANEL,NON- FASTING TRIGLYCERID E [MASS/VOLUM E] IN SERUM OR PLASMA 136 mg/dL <149 - 149 10/02 Specimen Type: PLASMA No comment entered. Ordering Provider: WILI VASQUEZ Report Released Date/Time: Oct 02, 2022 09:00 AM Reporting Lab: [facility] [address] Performing Lab: [facility] [address] [facility] Vital Signs Combined list of inpatient and outpatient Vital Signs from Department of Defense and Veterans Affairs, ranging from 12 months to all on record, depending upon the facility. Vital Sign Value Date Comments Source Encounters Combined list of: 1) Encounters from Department of Veterans Affairs facilities going back up to thelast 18 months. 2) Encounters from the Department of Defense facilities going back up to 280 months. Location Location Details Encounter Type Encounter Number Reason For Visit Attending Provider ADM Date DC Date Status Disposition Source [facility] Outpatient Encounter [id number] 10/02 [facility] OFFICE O/P EST MOD 30-39 MIN [id number] Diagnos is: ICD-10- CM I10 Essenti al (primar y) hyperte nsion<b r/> YENNIFER VASQUEZ NE 10/02 [facility] Outpatient Encounter [id number] 10/18 [place]counter [id number] 10/30 [place]counter [id number] 11/19 [place] [facility] Out[facility]counter [id number] 11/19 [place] Out[facility]counter [id number] 12/02 [place] Out[facility]counter [id number] 04/20 [place] [facility]counter [id number] 06/17 [place] Out[facility]counter [id number] 07/07 [place]counter [id number] 07/08 [facility] Encounter [id number] 07/22 [facility] En[facility] [id number] 07/23 [facility] Encounter [id number] YENNIFER VASQUEZ 09/30 [facility] Encounter [id number] 10/01 [facility] OFFICE O/P EST MOD 30 MIN [id number] Diagnos is: ICD-10- CM I10 Essenti al (primar y) hyperte nsion<b r/> CHRISTINAYENNIFER NE 10/[address] [facility] En[facility] [id number] 10/05 [facility] En[facility] [id number] 10/28 [facility] Social History Combined list of available smoking, tobacco, and other social history from Department of Defense and [facility] Affairs facilities. Social History Type Response Date Comment Sourc e Tobacco smoking status [facility]IS [facility]CO FOR[facility] History of tobacco use OR-TOBACCO QUIT 1 5 YRS OR MORE 10/01/2023 [facility] History of tobacco use OR-TOBACCO QUIT 1 5 YRS OR MORE 10/02/2022 [facility] History of tobacco use OR-TOBACCO FORMER USER 08/30/2021 [facility] History of tobacco use OR-TOBACCO FORMER USER 06/13/2020 [facility] History of tobacco use OR-TOBACCO QUIT 1 5 YRS OR MORE 06/03/2019 [facility] History of tobacco use OR-TOBACCO FORMER USER 05/19/2018 [facility] Advance Directives List of completed, amended, or rescinded Advance Directives on record at Department [facility] facilities. An actual copy of the Directive is not included. Date Advance Directive Provider Source 06/17/2023 ADVANCE DIRECTIVE [place] [facility]IN[facility] 06/17/2023 ADVANCE DIRECTIVE DISCUSSION FREIDA SAINI [facility]
--- OUTSIDE RECORDS SUMMARY | 2024-02-18 09:29 | XMS_ITS | Continuity of Care Document ---
Author Organization [facility] Address [address] [place] [address] Phone Care Team Providers Care Scrap Charger Name Role Phone Mehdi ESCOBEDO, PhD, Lewis Unavailable Unavai lable Allergies, Adverse Reactions, Alerts Substance Reaction Status Criticality No Known Allergies Active No Inform ation Medications Medication Instructions Dosage Effective Dates (start - stop) Status Comments MONTELUKAST SODIUM (unknown strength) Not Available - Active METOPROLOL SUCCINATE (unknown strength) Not Available - Active ASPIRIN (unknown strength) Not Available - Active METFORMIN HCL (unknown strength) Not Available - Active ROSUVASTATIN CALCIUM (unknown strength) Not Available - Active VALSARTAN-HYDROCHLOROTHI AZIDE (unknown strength) Not Available - Active ATENOLOL (unknown strength) Not Available - No Longer Active LISINOPRIL (unknown strength) Not Available - No Longer Active HYDROCHLOROTHIAZIDE (unknown strength) Not Available - No Longer Active CYCLOBENZAPRINE HCL (unknown strength) Not Available - No Longer Active NABUMETONE (unknown strength) Not Available - No Longer Active SIMVASTATIN (unknown strength) Not Available - No Longer Active TRAMADOL HCL (unknown strength) Not Available - No Longer Active Procedures Procedure Date Office/Outpatient Visit,New, Mod 2022 Office/Outpatient Visit,New, Mod 2018 Advance Directives Directive Yes / No Effective Date File Name No Information Encounters Encounter Description Practice Location Reason(s) For Visit Diagnoses Date Provider Providers Copied on Encounter Office/Outpat ient Visit,Redd Lopez [facility], [address], [place], [place], [id number], [place] tel:[phone] [facility] [place] Other intervertebral disc displacement, lumbar region 3 Mehdi Saucedo. [facility] [place], [address], [place], [address], [place]. tel:[phone] Referring Provider: Hay Keita, [employer] [facility] [address], [place], [address]. tel:[phone] Office/Outpat ient Visit,Redd Lopez [facility], [address], [place], [place], [id number], [place] tel:[phone] [facility] Pelvic and perineal pain 9 Mehdi Saucedo. [facility], [address], [place], [address], [place]. [phone] Referring Provider: Hay Keita, [employer] [facility] [address], [place], [address]. tel:[phone] [facility], [address], [place], [place], [id number], [place] tel:[phone] [facility] Low back pain Apr-0 9 Harding Lewis. [facility] [place], [address], [place], [address], [place]. [phone] Family History Family Member Type Diagnosis Age At Onset No Information Payers Payer name Insurance type [place]overed [id number] Medicare [facility] [id number] Social History Type Description Quantity Date Captured Comments Alcohol Use Details Unknown Caffeine Use Details Unknown Tobacco Use Status No Information Smoking Status Former smoker Non-Smoking Tobacco Use Details : No Details Available : No Details Available Sex Male Vital Signs Date / Time: Height Weight BMI Pulse Rate Blood Pressure Temperature Respiratory Rate Body Surface Area Head Circumference Head Circ. Percentile Wt./Umesh. Percentile BMI percentile Pulse Ox Inhaled Ox 2:27 PM 73.25 in 94.347 kg (208.00 lbs) 27.2 5 kg/m eter (2) Chief Complaint And Reason For Visit No Information Reason For Referral Reason For Referral No Information History Of Present Illness Encounter Date Complaint History Of Prese nt Illness No Information Functional Status Date Functional Assessmen t No Information Instructions Date Instruction Additional Infor mation No Information Assessments Type Assessment Date No Information Patient Care Teams Name Effective Dates (start - stop) Status Members No Information
--- OUTSIDE RECORDS SUMMARY | 2024-02-18 09:30 | XMS_ITS | Clinical Summary ---
Author Organization [facility] Address [place], [place] [address] Care Team Providers Care Risk And Compliance Analytics Director Name Role Phone Hayden Díaz MD Primary Care Provider [phone] Allergies No known active allergies Medications Medication Sig Dispensed Refills Start Date End Date Status metFORMIN (GLUCOPHAGE XR) 750 mg Extended-Release tablet Take 750 mg by mouth once daily with evening meal. 1 Active nitroglycerin (NITROSTAT) 0.4 mg sublingual tabletIndications:ASCVD (arteriosclerotic cardiovascular disease) Place 1 Tablet (0.4 mg) under the tongue every 5 minutes if needed. 5 Tablet 12 1 Active acetaminophen (TYLENOL EXTRA STRGTH) 500 mg tabletIndications:S/P CABG x 4 Take 2 Tablets (1,000 mg) by mouth every 6 hours if needed. Max acetaminophen dose: 4000mg in 24 hrs. 0 1 Active valsartan-hydrochlorothi azide (Diovan HCT) 160-25 mg per tablet Take 1 Tablet by mouth once daily. Active clopidogreL (PLAVIX) 75 mg tabletIndications:NSTEMI , initial episode of care (HC) Take 1 Tablet (75 mg) by mouth every morning. Take for 6-12 months as directed by forestry faculty member 30 Tablet 11 2 Active rosuvastatin (CRESTOR) 40 mg tabletIndications:Pure hypercholesterolemia Take 1 Tablet (40 mg) by mouth daily at bedtime. 30 Tablet 2 2 Active metoprolol succinate (TOPROL XL) 50 mg sustained-release tabletIndications:HTN (hypertension) TAKE 1 TABLET TWICE A DAY 180 Tablet 1 3 Active Active Problems Problem Noted Date Diagnosed Date NSTEMI, initial episode of care 06/07/2022 S/P CABG x 4 02/20/2021 Overview: DELANEY to LAD SVG to OM SVG to PDA SVG to diag Angina of effort 01/29/2021 Diabetes 01/29/2021 Chronic ischemic heart disease 04/09/2019 Overview: May 27, 2018 Entered By: NICKY NORWOOD Comment: stent early 1999 Chronic low back pain 04/09/2019 Hemorrhoids 04/09/2019 Overview: No comments entered for problem. 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 Vitamin D deficiency 04/09/2019 Overview: No comments entered for problem. Displacement of lumbar inter vertebral disc without myelopathy 04/28/2009 Degeneration of cervical intervertebral disc Essential hypertension, benign 08/17/2007 Pure hypercholesterolemia 08/17/2007 Intermediate coronary syndrome 08/17/2007 Postsurgical percutaneous tr ansluminal coronary angioplasty status 08/17/2007 Overview: 2 vessel stenting 8 years ago Degeneration of lumbar or lumbosacral interverte bral disc 01/19/2007 [facility] Overview: -s/p 2 vessel stenting ~1999 -Angiogram/PCI 08/17/07: mLAD: 30% ISR. pLCx: 95%. mLCx: 99%. RCA: dominant, diffuse luminal irregularities. RPDA: 60%. EF 60%. PCI: PTCA/TAXUS JORDYN to pLCx (stent extends from prox LCx into OM1 and crosses lesion in the mid LCx). PTCA Balloon to mLCx, post stenosis 30% (Dilated prior to stent deployment across this lesion). - 2020 CABG x 4: DELANEY to LAD, SVG to OM, SVG to PDA, SVG to Diagonal - 06/07/22 NSTEMI, angiogram with occluded SVG to Diagonal; no PCI Personal history of colonic polyps Resolved Problems Problem Noted Date Diagnosed Date Resolved Date Degeneration of cervical intervertebral disc 9 04/28/2009 Degeneration of cervical intervertebral disc 8 04/28/2009 Brachial neuritis or radiculitis NOS 06/22/2008 04/28/2009 Encounters Date Type Department Care Team Description 12/08/2023 Telephone [facility] [address] [place] [address] Hay Rouse MD Questions from Last 3 Months Immunizations Name Administration Dates Next Due COVID-19 vaccine (Moderna 100mcg/0.5mL) JESSICA WOODS 08/21/2020 Influenza Virus, Unspecified 06/07/2021, 04/22/2016,03/21/2014,2012,03/31/2012,04/03/2011 Influenza, IIV3 (Age >=3 years) 05/06/2019,05/21 Influenza, IIV4 05/06/2019,03/31/2013 Influenza, IIV4 (=>6mos) MDV 04/10/2016 Influenza, Inactivated AIIV4 (Age 65+ Years) Preserv Free 03/29/2022,06/07/2021,04/20/2020 Pneumococcal Poly,23-Valent (Pneumovax) 04/17/2017,06/06/2010 Pneumococcal conj 13-Valent (Prevnar 13) 04/17/2017,04/15/2017 Td (Age >=7 Years) 01/24/2004 Tdap 05/16/2014,01/24/2004 Zoster (Shingrix-RZV, recombinant) 12/19/2018, Family History Medical History Relation Name Comments Coronary artery disease Father Heart Disease Father Heart failure Father Relation Name Status Comments Father Social History Tobacco Use Types Packs/Day Years Used Date Smoking Tobacco: Former Smokeless Tobacco: Former Tobacco Cessation:Counseling Given: Yes Alcohol Use Standard Drinks/Week Comments Yes 0 (1 standard drink = 0.6 oz pure alcohol) occasional- a couple days a week. 2-3. PHQ-2 Answer Date Recorded PHQ-2 TOTAL SCORE 0 06/13/2021 Social Connections Answer Date Recorded Frequency of Communication with Friends and Fami ly Not on file 2021 Financial Resource Strain Answer Date R ecorded Difficulty of Paying Living Expenses Not on file 2021 Difficulty of Paying Living Expenses Not on file 2021 Sex and Gender Information Value Date Recorded Sex Assigned at Not on file Gender Identity Not on file Sexual Orientation Not on file Obstetrics History Last Filed Vital Signs Vital Sign Reading Time Taken Comments Blood Pressure 125/65 06/10/2022 8:06 AM [employer] Pulse 64 06/10/2022 8:06 AM [employer] Temperature 36.4 ??C (97.6 ??F) 06/10/2022 8:06 AM CS T Respiratory Rate 18 06/10/2022 8:06 AM [employer] Oxygen Saturation 96% 06/10/2022 8:06 AM [employer] Inhaled Oxygen Concentration - - Weight 96.6 kg (212 lb 15.4 oz) 06/10/2022 6:00 AM [employer] Height 188 cm (6' 2) 06/09/2022 11:37 PM [employer] Body Mass Index 27.34 06/09/2022 11:37 PM [employer] Plan of Treatment Health Maintenance Due Date Last Done Comments Hepatitis C screening for ag e 18-79 1968 Medicare Wellness for age 65+ 2016 BMI (ht and wt on same day) for age 18+ 02/15/2022 02/15/2021, 01/24/2021, 03/12/2019 Depression screening for age 12+ 06/13/2022 06/13/2021, 03/16/2021, 03/14/2021, Additional history exists COVID-19 vaccine series ( season) 2023 04/13/2022, 05/11/2021, 08/21/2020 Influenza for age 65+ 03/21/2024 03/29/2022 , 06/07/2021, 06/07/2021, Additional history exists Tetanus booster 05/16/2024 05/16/2014, 07/12/2003, 01/24/2004 Lipids for age 45-75 06/08/2027 06/08/2022, 01/25/2021, 08/17/2007 Colonoscopy through age 75 06/24/2029 06/24/2019 Tdap Completed 05/16/2014, 01/24/2004 Pneumococcal series for age 65+ Completed 04/17/2017, 04/17/2017, 04/15/2017, Additional history exists Zoster (shingles) series for age 50+ Completed 12/19/2018, 10/12/2018 Procedures Procedure Name Priority Date/Time Associated Diagnosis Comments LIPID PANEL Early AM 06/08/2022 7:56 AM [employer] COLONOSCOPY 06/24/2019 7:27 AM [employer] from Last 3 Months or Most Recently Relevant to Health Maintenance Results * Lipid Panel (06/08/2022 7:56 AM [employer]) CHOLESTEROL,TOTAL 147 100 - 199 mg/dL 06/08/2022 8:44 AM [employer] [facility] [employer] [facility] TRIGLYCERIDES 101 <150 mg/dL 06/08/2022 8:44 AM [employer] [facility] HDL CHOLESTEROL 45 >40 mg/dL 8:44 AM [employer] [facility] NON-HDL CHOLESTEROL 102 <145 mg/dl 06/08/2022 8:44 AM [employer] [facility] CHOL/HDL RATIO 3.27 <4.50 06/08/2022 8:44 AM [employer] [facility] LDL CHOLESTEROL 82 <=130 mg/dL 06/08/2022 8:44 AM [employer] [facility] VLDL CHOLESTEROL 20 <=30 mg/dL 06/08/2022 8:44 AM [employer] [facility] PROVIDER ORDERED STATUS RANDOM 06/08/2022 8:44 AM [employer] [facility] Blood BLOOD SPECIMEN / Unknown Venipuncture / Unknown 06/08/2022 7:56 AM [employer] 06/08/2022 8:17 AM [employer] Luisa Jaeger MD [facility] [address] [place] [address], [place] * COLONOSCOPY (06/24/2019 7:27 AM [employer]) 06/24/2019 7:27 AM [employer] Narrative Transcriptions Aníbal Grider MD - 06/24/2019 9:06 AM CST Patient Name: Garrett Hobbs Procedure Date: 06/24/2019 Gender: Male Date of : 1950 Admit Type: Ambulatory Procedure: Colonoscopy Proceduralist: Aníbal Grider [facility] Indications/Pre-Op Diagnosis: High risk colon cancer surveillance:Personal history of colonic polyps Medications: Midazolam 5 mg IV, Fentanyl 100 microgramsIV Procedure Description: The patient had risks, benefits and alternatives explained to andgave informed consent. The patient had a stable cardiopulmonary status and judged an adequate candidate for conscious sedation. The colonoscope was passed through the anus and advanced to 3 cm into the ileum. The colonoscopy was performed without difficulty. Thepatient tolerated the procedure well. The quality of the bowel preparationwas good. The terminal ileum, ileocecal valve, appendiceal orifice, and rectum were photographed. Complications: No immediate complications. Estimated Blood Loss & Specimen: Estimated blood loss: none. Specimen collected - Yes and sent to Laboratory Findings: The perianal and digital rectal examinations were normal. A 3 mm polyp was found in the mid transverse colon. The polyp was sessile. The polyp was removed with a jumbo cold forceps. Resectionand retrieval were complete. A 4 mm polyp was found in the splenic flexure. The polyp was sessile. The polyp was removed with a hot snare. Resection and retrieval were complete. A 3 mm polyp was found in the proximal descending colon. The polypwas sessile. The polyp was removed with a hot snare. Resection andretrieval were complete. The retroflexed view of the distal rectum and anal verge was normaland showed no anal or rectal abnormalities. The terminal ileum appeared normal. Impressions/Post-Op Diagnosis: - One 3 mm polyp in the mid transverse colon, removed with a jumbocold forceps. Resected and retrieved. - One 4 mm polyp at the splenic flexure, removed with a hot snare. Resected and retrieved. - One 3 mm polyp in the proximal descending colon, removed with a hot snare. Resected and retrieved. - The examined portion of the ileum was normal. Recommendation: - Discharge patient to home. - Resume previous diet. - Continue present medications. - Await pathology results. - Repeat colonoscopy in 5 years for surveillance. Moderate Sedation: Moderate (conscious) sedation was administered by the endoscopy nurse and supervised by the endoscopist. The following parameters were monitored: oxygen saturation, heart rate, respiratory rate, adequacyof pulmonary ventilation and reponse to care. Please refer to the patient's medical record flowsheets for moderate sedation details. Moderate (conscious) sedation was administered by the endoscopy nurse and supervised by the endoscopist. The patient's oxygen saturation, heart rate, blood pressure and response to care were monitored. Total physician intraservice time was 25 minutes. Aníbal Grider, 06/24/2019 9:06:14 AM This report has been signed electronically. Note Initiated On: 06/24/2019 7:27 AM Aníbal Grider MD PROCEDURE ORD from Last 3 Months or Most Recently Relevant to Health Maintenance Advance Directives * Full Code (Latest Code Status on File) Date Activated Date Inactivated Comments 06/07/2022 6:46 PM 06/10/2022 4:41 PM Question Answer Comments Code Status Discussion: Reviewed Preferences * Full Code Date Activated Date Inactivated Comments 02/20/2021 5:59 AM 02/27/2021 3:24 PM Question Answer Comments Code Status Discussion: Not Discussed * Full Code Date Activated Date Inactivated Comments 01/29/2021 8:14 AM 01/29/2021 8:33 PM Question Answer Comments Code Status Discussion: Discussed Care Teams Risk And Compliance Analytics Director Relationship Specialty Start Date End Date Hayden Díaz MD [address] [place] [address] PCP - General Family Practice 03/12/19
--- NOTE | 2024-02-18 10:00 | CRLHL7_ITS ---
For Patients: As a result of the Century Cures Act, medical imaging exams and procedure reports are released immediately into your electronic medical record. You may view this report before your referring provider. If you have questions, please contact your health care provider. INDICATION: Lung nodule. COMPARISON: None. TECHNIQUE: CT chest without intravenous contrast; coronal and sagittal reformats. FINDINGS: A thyroid goiter with extension into the retrosternal location extending from the left lobe of the thyroid gland with calcifications. Deviation of the trachea to the right by the thyroid goiter. Status post median sternotomy and aortocoronary bypass surgery. Calcified granuloma lower lobe right lung. No discrete abnormal intrapulmonary nodular densities identified. No evidence of pleural effusion or chest wall pathology. Limited CT through the upper abdomen reveals multiple cystic lesions in the liver as well as the right kidney; suggest obtaining a CT of the liver and kidneys without and with intravenous contrast for further assessment. Impression: 1. 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 2. Status post median sternotomy and aortic coronary bypass surgery. 3. Calcified granuloma right lung base. 4. Cystic lesions liver and right kidney; further assessment with a CT of the abdomen without and with intravenous contrast suggested. Please note that all CT scans at this facility use dose modulation, iterative reconstruction, and/or weight-based dosing when appropriate to reduce radiation dose to as low as reasonably achievable. Dictated by Lefty Love MD @ 02/20/2024 12:02:53 PM (Electronically Signed)
--- NOTE | 2024-02-18 11:00 | CRLHL7_ITS ---
For Patients: As a result of the Century Cures Act, medical imaging exams and procedure reports are released immediately into your electronic medical record. You may view this report before your referring provider. If you have questions, please contact your health care provider. Indication: Palpable mass right lateral neck Technique: Grayscale and color Doppler ultrasound of the right lateral neck soft tissues performed in the area of concern. Comparison: None Findings: There is a solid isoechoic nonvascular mass within the subcutaneous tissues measuring 4.7 x 3.3 x 5.4 cm. No fluid collection or adenopathy. Impression: Subcutaneous lipoma measuring 5.4 cm. Dictated by Ez Flanagan MD @ 02/20/2024 5:59:11 AM (Electronically Signed)
== END 2024-02-18 09:28 | disposition home or self-care (01) ==
LOC: CT 09:27
PROVIDERS: PCP Family Medicine; Visit Provider Family Medicine
DX: R91.1 Solitary pulmonary nodule (principal); R22.1 Localized swelling, mass and lump, neck; D17.0 Benign lipomatous neoplasm of skin and subcutaneous tissue of head, face and neck; E04.1 Nontoxic single thyroid nodule; K76.9 Liver disease, unspecified; N28.9 Disorder of kidney and ureter, unspecified
CPT/HCPCS: 71250; 76536